=== PATIENT | male | born 1995 | race Caucasian/White ===

== ENCOUNTER 2017-09-22 17:57 | Emergency (ER) | payer OTHER ==
[2017-09-22 18:08] VITALS: BP 166/86; PULSE 68; RESP 16; TEMP 98.6; O2SAT 96
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
[2017-09-22] MEDS ORDERED: DICL75TA PO (20:32)
[2017-09-22] MEDS ORDERED: BACL10TA PO (20:32)
[2017-09-22] MEDS ORDERED: IBUPROFEN 800 MG TAB PO ONE (20:45)
== END 2017-09-22 21:03 | disposition home or self-care (01) ==
LOC: NEPD 17:57
DX: S80.01XA Contusion of right knee, initial encounter (principal); S20.212A Contusion of left front wall of thorax, initial encounter; V49.40XA Driver injured in collision with unspecified motor vehicles in traffic accident, initial encounter; F17.210 Nicotine dependence, cigarettes, uncomplicated; Z88.0 Allergy status to penicillin
CPT/HCPCS: 71045; 72125; 73564; 99284